=== PATIENT | female | born 1995 | race Caucasian/White ===

== ENCOUNTER 2022-05-16 06:19 | Emergency (ER) | payer BC ==
[2022-05-16 06:27] VITALS: BP 119/75; PULSE 83; RESP 16; TEMP 98.2; BMI 24.9
== END 2022-05-16 06:48 | disposition home or self-care (01) ==
LOC: FER 06:19
PROC: 0HQ1XZZ Repair Face Skin, External Approach (ICD-10-PCS; principal; 2022-05-16)
DX: S01.81XA Laceration without foreign body of other part of head, initial encounter (principal); W01.0XXA Fall on same level from slipping, tripping and stumbling without subsequent striking against object, initial encounter
CPT/HCPCS: 99282-25

== ENCOUNTER 2022-05-23 09:57 | Emergency (ER) | payer BC ==
[2022-05-23 10:08] VITALS: BP 124/73; PULSE 76; RESP 15; TEMP 98.9; BMI 24.8
== END 2022-05-23 10:39 | disposition home or self-care (01) ==
LOC: FER 09:57
DX: S01.81XD Laceration without foreign body of other part of head, subsequent encounter (principal); Z48.02 Encounter for removal of sutures
CPT/HCPCS: 99281-25